=== PATIENT | male | born 1965 | race American Indian/Alaskan Native ===

== ENCOUNTER 2016-08-29 08:21 | Day surgery (SDC) | payer OTHER ==
[2016-08-29] MEDS ORDERED: NACL 0.9% 500 ML 500 ML IV SCH (09:00)
[2016-08-29 09:19] LABS: INR 0.98 (0.87-1.13)
[2016-08-29] MEDS ORDERED: HEPARIN/NS 5000 UNIT/500ML(CATH LAB) 1,000 ML IR ONE (10:03)
[2016-08-29] MEDS ORDERED: NACL 0.9% 250ML 250 ML ONE (10:04)
[2016-08-29] MEDS ORDERED: ANCEF/STERILE WATER 2 GM/20 ML 20 ML IV ONE (10:05)
[2016-08-29] MEDS: XYLOCAINE 1%/ EPI 1:100,000 INFILTRATI ONE ×2 (10:22→10:27)
[2016-08-29] MEDS: VERSED ONE ×2 (10:23→10:25)
[2016-08-29] MEDS: SUBLIMAZE ONE ×2 (10:23→10:25)
--- NOTE | 2016-08-29 10:50 | Short Stay Summary ---
Short Stay Documentation Date of service: 08/29/16 - History Principal diagnosis: Port no longer needed Past Medical History: cancer Past Surgical History: Other (right port placement, PEG) Social history: no significant social history - Allergies and Medications Current Medications: Allergies No Known Allergies Allergy (Verified 06/04/15 09:43) Home Medications Medication Instructions Recorded Confirmed Last Taken Type Lyrica 20 mg/ml 40 mg PO DAILY 06/10/15 08/29/16 08/28/16 History 40mg Cetirizine HCl [ZyrTEC] 10 mg PO DAILY 08/29/16 08/29/16 08/28/16 History 10mg Lenalidomide [Revlimid] 20 mg PO DAILY 08/29/16 08/29/16 08/28/16 History 20mg Active Medications Sodium Chloride (Nacl 0.9% 500 Ml) 500 mls @ 50 mls/hr IV DIRECT ALEJANDRA - Physical exam General appearance: no acute distress Integumentary: no rash, no growths HEENT: Atraumatic Lungs: Normal air movement Breasts: deferred Heart: Regular rate Gastrointestinal: normal Male Genitourinary: deferred Rectal Exam: deferred Extremities: no ischemia Neurological: Normal gait, Normal speech - Brief post op/procedure progress note Date of procedure: 08/29/16 Pre-op diagnosis: Port no longer needed Post-op diagnosis: same Procedure: Right chest wall port removal Anesthesia: local Surgeon: ANNABELLE PEREZ Estimated blood loss: minimal Pathology: none Condition: stable - Disposition Condition at discharge: Good Disposition: DISCHARGED TO HOME OR SELFCARE Short Stay Discharge Plan Activity: no restrictions Weight Bearing Status: Weight Bear as Tolerated Diet: regular Wound: keep clean and dry, per your surgeon's advice
--- NOTE | 2016-08-29 10:54 | Operative Report ---
Operative Report Operative Report: EXAM: RIGHT CHEST WALL PORT REMOVAL CLINICAL INDICATION: PATIENT IS COMPLETED CHEMOTHERAPY, PORT NO LONGER NEEDED DATE: 08/29/2016 PROCEDURE: Following an explanation of the risks, benefits and alternatives; written informed consent was obtained. The patient was brought to the angiographic suite and position on the examination table. Initial fluoroscopic images were obtained which demonstrated an intact port with the tubing in the proximal right atrium. The patient's right chest wall was prepped and draped in the usual sterile fashion. 1% lidocaine was used for anesthesia. Incision was made over the right chest wall port. Using a combination of sharp and blunt dissection, the port pocket was entered and the port grasped. The catheter tubing was dissected free and using a combination of sharp and blunt dissection, the port was dissected free. Was closed using 30 and 4-0 Vicryl subcutaneous and subcuticular sutures. Dermabond and Steri-Strips were then applied. A sterile dressing was then applied. The patient tolerated the procedure well. There were no immediate post procedure complications. Sedation was performed under the guidance of radiologic nursing. Continuous cardiopulmonary monitoring was utilized. IMPRESSION: Right chest wall port removal
[2016-08-29 11:20] VITALS: BP 112/65
== END 2016-08-29 11:30 | disposition home or self-care (01) ==
LOC: OPU 08:21 → EDSTATUS 09:00 → OPU 11:30
PROVIDERS: ATTEND Internal Medicine Hematology & Oncology
DX: Z45.2 Encounter for adjustment and management of vascular access device (principal); F17.210 Nicotine dependence, cigarettes, uncomplicated; F12.90 Cannabis use, unspecified, uncomplicated; Z72.89 Other problems related to lifestyle
CPT/HCPCS: 36415; 36590; 85610; 85730; J0690; J1644; J2250; J3010; J7050